=== PATIENT | male | born 1945 | race Caucasian/White ===

== ENCOUNTER 2022-08-02 11:56 | Observation (INO) | payer MEDICARE, OTHER ==
[2022-08-02 13:01] LABS: #Eosinphils 0.1 thou/uL (0.0-0.7); #Monocytes 0.5 thou/uL (0.11-0.59); #Neutrophils 4.3 thou/uL (1.40-6.50); %Basophils 0.3 % (0.0-1.0); %Eosinophils 1.3 % (0.0-10.0); %Lymphocytes 20.7 % (21.0-51.0); %Monocytes 8.5 % (0.0-10.0); %Neutrophils 68.7 % (42.0-75.0); Hemoglobin 12.9 g/dL (14.0-18.0); Mean Corpuscular HGB CONC 34.7 g/dL (32.0-36.0); Mean Corpuscular Volume 98.2 fl (78.0-98.0); Mean Platelet Volume 8.9 fL (7.4-10.4); Platelet Count 156 10x3/uL (130-400); RBC Distribution Width 12.7 % (11.5-14.5); Red Blood Cell (RBC) Count 3.79 mill/uL (4.70-6.10); White Blood Cell (WBC) Count 6.3 10x3/uL (4.8-10.8)
[2022-08-02 13:39] LABS: ALT (SGPT) 52 U/L (8-55); AST (SGOT) 30 U/L (5-34); Alkaline Phosphatase 82 U/L (40-110); Anion Gap 11 mmol/L (10-20); BUN (Urea Nitrogen) 22 mg/dL (8.4-25.7); Bilirubin, Total 0.9 mg/dL (0.2-1.2); CK (CPK) 93 U/L (30-200); Calc. Creatinine Clearance 0 mL/min (70-130); Calcium 9.1 mg/dL (7.8-10.44); Carbon Dioxide 29 mmol/L (23-31); Chloride 106 mmol/L (98-107); Estimated GFR 62; Globulin 1.7 g/dL (2.4-3.5); Glucose 93 mg/dL (83-110); Potassium 3.7 mmol/L (3.5-5.1); Protein, Total 5.7 g/dL (5.8-8.1); Sodium 142 mmol/L (136-145)
[2022-08-02] MEDS ORDERED: Aspirin Chewable 81 MG TAB ONE (15:09)
[2022-08-02] MEDS ORDERED: Acetaminophen 325 MG TAB PO PRN (17:16)
[2022-08-02] MEDS ORDERED: hydrALAZINE 20 MG/ML VIAL SLOW IVP PRN (17:16)
[2022-08-02] MEDS ORDERED: Ondansetron ODT 4 MG TAB PO PRN (17:16)
[2022-08-02] MEDS ORDERED: Iopamidol-370 76% 500 ML MDV (1 ML CHARGE) ONE (17:18)
[2022-08-02] MEDS ORDERED: Atorvastatin Calcium 40 MG TAB PO SCH (21:00)
[2022-08-02 22:14] VITALS: BMI 25.2
[2022-08-03 05:11] LABS: #Eosinphils 0.1 thou/uL (0.0-0.7); #Monocytes 0.7 thou/uL (0.11-0.59); %Basophils 0.5 % (0.0-1.0); %Lymphocytes 24.4 % (21.0-51.0); %Monocytes 10.2 % (0.0-10.0); %Neutrophils 62.3 % (42.0-75.0); Hemoglobin 12.7 g/dL (14.0-18.0); Mean Corpuscular HGB CONC 35.2 g/dL (32.0-36.0); Mean Corpuscular Hemoglobin 34.7 pg (27.0-31.0); Mean Corpuscular Volume 98.6 fl (78.0-98.0); Mean Platelet Volume 8.8 fL (7.4-10.4); Platelet Count 135 10x3/uL (130-400); RBC Distribution Width 12.6 % (11.5-14.5); Red Blood Cell (RBC) Count 3.66 mill/uL (4.70-6.10); White Blood Cell (WBC) Count 6.4 10x3/uL (4.8-10.8)
[2022-08-03 05:39] LABS: Anion Gap 9 mmol/L (10-20); BUN (Urea Nitrogen) 16 mg/dL (8.4-25.7); Calc. Creatinine Clearance 89 mL/min (70-130); Carbon Dioxide 26 mmol/L (23-31); Cardiac Risk 2.9 (Less than 4.5); Chloride 110 mmol/L (98-107); Cholesterol 134 mg/dl (< 200 Desired); Estimated GFR 88; Glucose 90 mg/dL (83-110); HDL Cholesterol 46 mg/dL (>60 Neg Risk); LDL Cholesterol, Calculated 66 mg/dL; Magnesium 2.5 mg/dL (1.6-2.6); Potassium 3.3 mmol/L (3.5-5.1); Sodium 142 mmol/L (136-145); Triglycerides 111 mg/dL (Less than 150)
[2022-08-03 08:11] LABS: Hemoglobin A1c 5.3 % (4.0-6.0)
[2022-08-03] MEDS ORDERED: Aspirin 81 mg Enteric Coated Tablet PO SCH (09:00)
[2022-08-03] MEDS ORDERED: HYDROcodone/Acetaminophen 10/325 mg Tablet PO PRN (12:25)
[2022-08-03 13:00] VITALS: BP 142/87; TEMP 98.1
[2022-08-03] MEDS ORDERED: Buprenorphine 8mg/Naloxone 2mg per 1 FILM SL PRN (14:07)
[2022-08-03] MEDS ORDERED: ALPRAZolam 0.5 MG TAB PO SCH (15:00)
[2022-08-03] MEDS ORDERED: Rosuvastatin 20 MG TAB PO SCH (21:00)
[2022-08-03] MEDS ORDERED: Losartan 25 MG TAB PO SCH (21:00)
[2022-08-03] MEDS ORDERED: Ezetimibe 10 MG TAB PO SCH (21:00)
[2022-08-03] MEDS ORDERED: Non-Formulary Item 1 EACH (Pregabalin [Lyrica] 150 MG Capsule) PO SCH (21:00)
[2022-08-04] MEDS ORDERED: Aspirin 81 mg Enteric Coated Tablet PO SCH (09:00)
[2022-08-04] MEDS ORDERED: Clopidogrel Bisulfate 75 MG TAB PO SCH (09:00)
[2022-08-04] MEDS ORDERED: Hydrochlorothiazide 25 MG TAB PO SCH (09:00)
== END 2022-08-03 15:10 | disposition home or self-care (01) ==
LOC: ERS 11:56 → ERHOLD 15:38 → NEURO 20:30
PROVIDERS: ADMIT Family Medicine; ATTEND Internal Medicine
DX: G92.8 Other toxic encephalopathy (principal); E78.5 Hyperlipidemia, unspecified; I10 Essential (primary) hypertension; I25.10 Atherosclerotic heart disease of native coronary artery without angina pectoris; B02.21 Postherpetic geniculate ganglionitis; G89.29 Other chronic pain; Z95.5 Presence of coronary angioplasty implant and graft; Z79.82 Long term (current) use of aspirin; Z79.899 Other long term (current) drug therapy; Z79.02 Long term (current) use of antithrombotics/antiplatelets
CPT/HCPCS: 70496; 70498; 70551; 71045; 80048; 80053; 80061; 82550; 83036; 83735; 84484; 85025 ×2; 93005; 93306; 99285; G0378 ×3; 36415; Q9967